=== PATIENT | female | born 2000 | race Hispanic/Latino ===

== ENCOUNTER 2022-09-25 13:43 | Inpatient (IN) | payer OTHER ==
[2022-09-25 14:18] VITALS: BMI 33.5
[2022-09-25] MEDS ORDERED: Acetaminophen 325 MG TAB PO SCH (15:00)
[2022-09-25 16:11] LABS: Bacteria/HPF 1+ HPF (None Seen); RBC/HPF 0-3 HPF (0-3); Squamous Epithelial 0-3 HPF (0-3); WBC/HPF 0-3 HPF (0-3)
[2022-09-25 16:20] LABS: Fetal Membranes Rupture No Membranes Rupture (No Rupture)
[2022-09-25] MEDS ORDERED: Ondansetron PF 4 MG/2 ML Vial IVP PRN (17:20)
[2022-09-25] MEDS ORDERED: Promethazine HCl 25 MG/ML VIAL IM PRN (17:20)
[2022-09-25] MEDS ORDERED: Acetaminophen 500 MG TAB PO PRN (17:20)
[2022-09-25] MEDS ORDERED: Docusate 100 MG CAP PO PRN (17:20)
[2022-09-25] MEDS ORDERED: hydrALAZINE 20 MG/ML VIAL SLOW IVP PRN (17:20)
[2022-09-25] MEDS ORDERED: Betamet Acet/Betamet Na Ph 30 MG/5 ML VIAL ONE (17:35)
[2022-09-25] MEDS: Betamet Acet/Betamet Na Ph 30 MG/5 ML VIAL IM SCH (17:41)
[2022-09-25 18:21] LABS: Hemoglobin 11.7 g/dL (12.0-15.5); Mean Corpuscular HGB CONC 34.1 g/dL (32.0-36.0); Mean Corpuscular Hemoglobin 32.1 pg (27.0-33.0); Mean Platelet Volume 10.7 fl (7.4-10.4); Platelet Count 237 10x3/uL (150-450); RBC Distribution Width 13.7 % (11.5-14.5); Red Blood Cell (RBC) Count 3.65 10x6/uL (3.90-5.03); White Blood Cell (WBC) Count 9.6 10x3/uL (3.5-10.5)
[2022-09-25 18:48] LABS: HBSAg Index 0.17 S/CO (0-0.99); Hep B Surf Ag Non-Reactive S/CO (NonReactive)
[2022-09-25 18:49] LABS: Syphilis Antibody Nonreactive (Nonreactive); Syphilis Antibody Index 0.04 S/CO (<1.00 Non-Reactive)
[2022-09-25] MEDS: Lactated Ringer's 1,000 ML IV SCH (20:18)
[2022-09-26] MEDS: Lactated Ringer's 1,000 ML IV SCH ×2 (05:00→17:59)
[2022-09-26] MEDS: Betamet Acet/Betamet Na Ph 30 MG/5 ML VIAL IM SCH (17:59)
[2022-09-28 15:28] LABS: Group B Streptococcus by PCR Not Detected (NotDetected)
== END 2022-09-28 16:12 | disposition home or self-care (01) | DRG 833 ==
LOC: CSHLD/OP 13:43 → CSHLD 09-26 03:37 → OBSVTOIN 09-27 16:41
PROVIDERS: ADMIT Obstetrics & Gynecology; ATTEND Obstetrics & Gynecology
DX: O41.03X0 Oligohydramnios, third trimester, not applicable or unspecified (principal); Z3A.32 32 weeks gestation of pregnancy; O36.8130 Decreased fetal movements, third trimester, not applicable or unspecified
CPT/HCPCS: 36415; 76819; 81015; 84112; 85027; 86780; 86850; 86900; 86901; 87340; 87653; 99285; J0702; J7120

== ENCOUNTER 2022-10-14 22:40 | Day surgery (SDC) | payer OTHER ==
[2022-10-14 23:09] VITALS: BMI 33.5
== END 2022-10-15 01:24 | disposition home or self-care (01) ==
LOC: CSHLD/OP 22:40
PROVIDERS: ATTEND Obstetrics & Gynecology
DX: O47.03 False labor before 37 completed weeks of gestation, third trimester (principal); Z3A.35 35 weeks gestation of pregnancy; Z86.16 Personal history of COVID-19
CPT/HCPCS: 99283

== ENCOUNTER 2022-10-18 14:54 | Day surgery (SDC) | payer OTHER ==
[2022-10-18 15:16] VITALS: BMI 33.5
[2022-10-18] MEDS ORDERED: hydrALAZINE 20 MG/ML VIAL SLOW IVP PRN (15:54)
[2022-10-18] MEDS ORDERED: Ondansetron ODT 4 MG TAB SL SCH (16:15)
== END 2022-10-18 17:20 | disposition home or self-care (01) ==
LOC: CSHLD/OP 14:54
PROVIDERS: ATTEND Obstetrics & Gynecology
DX: O47.03 False labor before 37 completed weeks of gestation, third trimester (principal); O21.2 Late vomiting of pregnancy; O99.283 Endocrine, nutritional and metabolic diseases complicating pregnancy, third trimester; E86.0 Dehydration; Z3A.35 35 weeks gestation of pregnancy
CPT/HCPCS: 99283; Q0162

== ENCOUNTER 2022-10-20 16:35 | Day surgery (SDC) | payer OTHER | END 2022-10-20 17:59 | disposition home or self-care (01) | LOC: CSHLD/OP 16:35 | PROVIDERS: ATTEND Obstetrics & Gynecology | DX: Z36.89 Encounter for other specified antenatal screening (principal); Z3A.36 36 weeks gestation of pregnancy | CPT/HCPCS: 76819; 99282 ==

== ENCOUNTER 2022-10-27 18:00 | Inpatient (IN) | payer OTHER ==
[2022-10-28] MEDS ORDERED: Misoprostol 100 MCG TAB ONE ×2 (05:05→05:19)
[2022-10-28 05:18] LABS: Hemoglobin 12.1 g/dL (12.0-15.5); Mean Corpuscular HGB CONC 34.2 g/dL (32.0-36.0); Mean Corpuscular Hemoglobin 32.1 pg (27.0-33.0); Mean Corpuscular Volume 93.9 fl (81.6-98.3); Mean Platelet Volume 11.2 fl (7.4-10.4); Platelet Count 221 10x3/uL (150-450); Red Blood Cell (RBC) Count 3.77 10x6/uL (3.90-5.03); White Blood Cell (WBC) Count 10.5 10x3/uL (3.5-10.5)
[2022-10-28] MEDS: Misoprostol 100 MCG TAB VAG SCH ×3 (05:20→22:09)
[2022-10-28 05:29] VITALS: BMI 34.6
[2022-10-28] MEDS ORDERED: Ibuprofen 800 MG TAB PO PRN (05:30)
[2022-10-28] MEDS ORDERED: Methylergonovine 0.2 MG/ML VIAL IM PRN (05:30)
[2022-10-28] MEDS ORDERED: Ondansetron PF 4 MG/2 ML Vial IVP PRN ×2 (05:30→10:41)
[2022-10-28] MEDS ORDERED: Diphenoxylate HCl/Atropine Tablet PO PRN ×2 (05:30)
[2022-10-28] MEDS ORDERED: NS w/ Oxytocin 30 units 500 ML IVPB SCH (05:30)
[2022-10-28] MEDS ORDERED: NS w/ Oxytocin 30 units 500 ML IV SCH (05:30)
[2022-10-28] MEDS ORDERED: hydrALAZINE 20 MG/ML VIAL SLOW IVP PRN (05:30)
[2022-10-28] MEDS ORDERED: Carboprost 250 MCG/ML AMP IM PRN (05:30)
[2022-10-28] MEDS ORDERED: Lactated Ringer's 1,000 ML IV SCH (05:30)
[2022-10-28] MEDS ORDERED: Promethazine HCl 25 MG/ML VIAL IM PRN ×2 (05:30→10:41)
[2022-10-28] MEDS ORDERED: Acetaminophen 500 MG TAB PO PRN (05:30)
[2022-10-28] MEDS ORDERED: Lidocaine 1% (PF) 30 ML VIAL SC PRN (05:30)
[2022-10-28] MEDS ORDERED: Misoprostol 200 MCG TAB RC PRN (05:30)
[2022-10-28] MEDS ORDERED: Butorphanol Tartrate 1 MG/ML VIAL SLOW IVP PRN (05:30)
[2022-10-28 05:42] LABS: Syphilis Antibody Nonreactive (Nonreactive); Syphilis Antibody Index 0.07 S/CO (<1.00 Non-Reactive)
[2022-10-28 05:43] LABS: HBSAg Index 0.17 S/CO (0-0.99); Hep B Surf Ag Non-Reactive S/CO (NonReactive)
[2022-10-28 06:50] LABS: SARS-CoV-2 NAA Rapid Test Not Detected (NotDetected)
[2022-10-28] MEDS ORDERED: Bupivacaine 0.25% HCL 30 ML VIAL ONE (08:00)
[2022-10-28] MEDS ORDERED: NS w/ Oxytocin 30 units 500 ML ONE (09:37)
[2022-10-28] MEDS ORDERED: Fentanyl 2 mcg/Bup 0.1% Cadd 100 ML ONE (09:45)
[2022-10-28] MEDS ORDERED: Acetaminophen 325 MG TAB PO PRN (10:41)
[2022-10-28] MEDS ORDERED: Moisturizing Cream (Eucerin) 113 GM JAR TOP PRN (10:41)
[2022-10-28] MEDS ORDERED: diphenhydrAMINE 50 MG/ML VIAL IVP PRN (10:41)
[2022-10-28] MEDS ORDERED: Lactated Ringer's 500 ML IV PRN (10:41)
[2022-10-28] MEDS ORDERED: Naloxone HCl 0.4 mg/ml Vial IVP PRN ×2 (10:41)
[2022-10-28] MEDS ORDERED: ePHEDrine Sulfate 50 MG/10 ML VIAL SLOW IVP PRN (10:41)
[2022-10-28] MEDS ORDERED: Communication Order-Pharmacy FS SCH (10:45)
[2022-10-28] MEDS ORDERED: Fentanyl 2 mcg/Bupivacaine 0.1% Cassette 100 ML EPIDURAL SCH (10:45)
[2022-10-28] MEDS: Lactated Ringer's 1,000 ML IV SCH (22:08)
[2022-10-28] MEDS: Ibuprofen 800 MG TAB PO SCH (23:51)
[2022-10-29] MEDS ORDERED: Benzocaine-Menthol 82.5 ML CAN TOP PRN ×2 (01:57→14:21)
[2022-10-29] MEDS ORDERED: Bisacodyl 10 MG SUPP PR PRN ×2 (01:58→14:21)
[2022-10-29] MEDS ORDERED: Milk Of Magnesia 30 ML UDCUP PO PRN ×2 (01:59→14:21)
[2022-10-29] MEDS ORDERED: Boostrix 0.5 ML (Tdap) VIAL (>/=7 yrs of age) IM ONE ×2 (02:00→14:21)
[2022-10-29] MEDS ORDERED: NS w/ Oxytocin 30 units 500 ML IVPB SCH (02:00)
[2022-10-29] MEDS ORDERED: hydrALAZINE 20 MG/ML VIAL SLOW IVP SCH (02:00)
[2022-10-29] MEDS: Misoprostol 100 MCG TAB VAG SCH ×4 (03:55→14:35)
[2022-10-29] MEDS: Ibuprofen 800 MG TAB PO SCH ×3 (05:10→22:02)
[2022-10-29] MEDS: Lactated Ringer's 1,000 ML IV SCH ×2 (06:18→14:35)
[2022-10-29] MEDS ORDERED: Ferrous Sulfate 325 MG TAB PO SCH (08:00)
[2022-10-29] MEDS ORDERED: Docusate Calcium (SURFAK) 240 MG CAP PO SCH (09:00)
[2022-10-29] MEDS ORDERED: Prenatal Vitamin 1 TAB PO SCH (09:00)
[2022-10-29] MEDS ORDERED: diphenhydrAMINE 25 MG CAP PO PRN (14:21)
[2022-10-29] MEDS ORDERED: Misoprostol 200 MCG TAB VAG PRN (14:21)
[2022-10-29] MEDS ORDERED: HYDROcodone/Acetaminophen 5/325 mg Tablet PO PRN (14:21)
[2022-10-29] MEDS ORDERED: Zolpidem Tartrate 5 MG TAB PO PRN (14:21)
[2022-10-29] MEDS ORDERED: Ondansetron PF 4 MG/2 ML Vial IVP PRN (14:21)
[2022-10-29] MEDS ORDERED: hydrALAZINE 20 MG/ML VIAL SLOW IVP PRN (14:21)
[2022-10-29] MEDS ORDERED: Preparation H Ointment 28 GM TUBE PR PRN (14:21)
[2022-10-29] MEDS ORDERED: Measles/Mumps/Rubella 10 MCG/0.5 ML VIAL SC ONE (14:21)
[2022-10-29] MEDS ORDERED: Methylergonovine 0.2 MG/ML VIAL IM PRN (14:21)
[2022-10-29] MEDS ORDERED: Promethazine HCl 25 MG/ML VIAL IM PRN (14:21)
[2022-10-29] MEDS ORDERED: Lanolin Ointment 7 GM TUBE TOP PRN (14:21)
[2022-10-29] MEDS ORDERED: Varicella virus, LIVE 0.5 ML VIAL SC ONE (14:21)
[2022-10-29] MEDS ORDERED: Ibuprofen 800 MG TAB PO SCH (15:00)
[2022-10-29] MEDS: Ferrous Sulfate 325 MG TAB PO SCH (16:00)
[2022-10-29] MEDS: Docusate 100 MG CAP PO SCH (22:01)
[2022-10-30] MEDS: Ibuprofen 800 MG TAB PO SCH (04:59)
[2022-10-30 05:16] LABS: Hemoglobin 11.5 g/dL (12.0-15.5); Mean Corpuscular Hemoglobin 32.3 pg (27.0-33.0); Mean Corpuscular Volume 94.9 fl (81.6-98.3); Platelet Count 203 10x3/uL (150-450); RBC Distribution Width 14.1 % (11.5-14.5); Red Blood Cell (RBC) Count 3.56 10x6/uL (3.90-5.03); White Blood Cell (WBC) Count 12.8 10x3/uL (3.5-10.5)
[2022-10-30 08:05] VITALS: BP 124/76; TEMP 97.9
[2022-10-30] MEDS ORDERED: Prenatal Vitamin 1 TAB PO SCH (09:00)
[2022-10-30] MEDS: Ferrous Sulfate 325 MG TAB PO SCH (09:38)
[2022-10-30] MEDS: Docusate 100 MG CAP PO SCH (09:48)
== END 2022-10-30 14:32 | disposition home or self-care (01) | DRG 807 ==
LOC: CSHLD 10-28 01:24 → CSHPP 10-28 20:35
PROVIDERS: ADMIT Obstetrics & Gynecology; ATTEND Obstetrics & Gynecology
PROC: 10E0XZZ Delivery of Products of Conception, External Approach (ICD-10-PCS; principal; 2022-10-28)
DX: O41.03X0 Oligohydramnios, third trimester, not applicable or unspecified (principal); Z37.0 Single live birth; Z3A.37 37 weeks gestation of pregnancy; Z20.822 Contact with and (suspected) exposure to COVID-19
CPT/HCPCS: 36415; 51702; 85027; 86780; 86850; 86900; 86901; 87340; S0020; U0002

== ENCOUNTER 2022-10-31 22:09 | Emergency (ER) | payer OTHER ==
[2022-10-31 22:36] LABS: Bilirubin Neg (Negative); Blood, Urine 250 (Negative); Clarity Cloudy (Clear); Glucose, Urine (Dipstick) Normal (Negative); Ketone, Urine Negative (Negative); Leukocyte 100 (Negative); Nitrite Negative (Negative); Protein, Urine (Dipstick) 30 mg/dl (Neg-Trace); Specific Gravity, Urine 1.005 (1.005-1.030)
[2022-10-31 23:18] LABS: Bacteria/HPF Rare-Few HPF (None Seen); RBC/HPF 0-3 HPF (0-3); Squamous Epithelial 0-3 HPF (0-3)
[2022-11-01 00:15] LABS: #Eosinphils 0.1 10x3/uL (0.0-0.5); #Monocytes 0.3 10x3/uL (0.0-1.1); #Neutrophils 10.8 10x3/uL (1.5-8.4); %Basophils 0.1 % (0.0-2.0); %Eosinophils 0.9 % (0.0-6.0); %Lymphocytes 11.9 % (18.0-47.0); %Monocytes 2.2 % (0.0-10.0); %Neutrophils 84.4 % (40.0-75.0); Hemoglobin 12.4 g/dL (12.0-15.5); Mean Corpuscular HGB CONC 34.6 g/dL (32.0-36.0); Mean Corpuscular Hemoglobin 32.4 pg (27.0-33.0); Mean Corpuscular Volume 93.5 fl (81.6-98.3); Mean Platelet Volume 10.9 fl (7.4-10.4); Platelet Count 217 10x3/uL (150-450); RBC Distribution Width 13.6 % (11.5-14.5); Red Blood Cell (RBC) Count 3.83 10x6/uL (3.90-5.03); White Blood Cell (WBC) Count 12.8 10x3/uL (3.5-10.5)
[2022-11-01] MEDS ORDERED: Lidocaine 1% PF 5 ML VIAL ONE (00:26)
[2022-11-01] MEDS ORDERED: cefTRIAXone\\ROCEPHIN 1 GM VIAL ONE (00:26)
[2022-11-01] MEDS ORDERED: Acetaminophen 325 MG TAB ONE (00:26)
[2022-11-01 00:30] LABS: ALT (SGPT) 56 U/L (8-55); AST (SGOT) 70 U/L (5-34); Albumin 3.2 g/dL (3.5-5.0); Alkaline Phosphatase 140 U/L (40-110); Anion Gap 14 mmol/L (10-20); BUN (Urea Nitrogen) 8 mg/dL (7.0-18.7); Bilirubin, Total 0.5 mg/dL (0.2-1.2); Calc. Creatinine Clearance 0 mL/min (70-130); Calcium 9.2 mg/dL (7.8-10.44); Carbon Dioxide 20 mmol/L (22-29); Chloride 107 mmol/L (98-107); Estimated GFR 125; Globulin 3.5 g/dL (2.4-3.5); Glucose 99 mg/dL (70-105); Potassium 3.5 mmol/L (3.5-5.1); Protein, Total 6.7 g/dL (6.0-8.3); Sodium 137 mmol/L (136-145)
== END 2022-11-01 00:42 | disposition home or self-care (01) ==
LOC: CSHERS 22:09
DX: N61.0 Mastitis without abscess (principal)
CPT/HCPCS: 80053; 81003; 81015; 85025; 96372; 99283; J0696